=== PATIENT | male | born 1960 | race Caucasian/White ===

== ENCOUNTER 2018-02-26 16:36 | Emergency (ER) | payer OTHER ==
[2018-02-26] MEDS: KETOROLAC 60 MG INJ IM (17:18)
== END 2018-02-26 18:31 | disposition home or self-care (01) ==
LOC: FTE 16:36
DX: S69.91XD Unspecified injury of right wrist, hand and finger(s), subsequent encounter (principal); F17.210 Nicotine dependence, cigarettes, uncomplicated; I10 Essential (primary) hypertension; X58.XXXD Exposure to other specified factors, subsequent encounter; Y92.89 Other specified places as the place of occurrence of the external cause
CPT/HCPCS: 29125; 73110-RT; 96372; 99284-25